=== PATIENT | male | born 2000 | race Caucasian/White ===

== ENCOUNTER 2021-09-04 12:27 | Emergency (ER) | payer OTHER, SELFPAY ==
[2021-09-04 12:39] VITALS: BP 139/69; PULSE 98; RESP 16; TEMP 37.9; O2SAT 100
--- NOTE | 2021-09-04 13:00 | ED.URI ---
HPI - URI/Sore Throat General Chief Complaint: Upper Respiratory Infection Stated Complaint: lump on right side of neck Time Seen by Provider: 09/04/21 12:45 Source: patient Mode of arrival: ambulatory Limitations: no limitations History of Present Illness HPI Narrative: Jose is a 20-year-old male patient presenting to the clinic today with complaints of a lump to the right side of his neck, fever, and a sore throat x3 days. He is reports that he has had some nasal congestion and a slight cough. He denies any known exposure to anyone with COVID, strep, or influenza. MD elicited complaint: fever, cough, sore throat and nasal congestion Related Data Allergies Allergy/AdvReac Type Severity Reaction Status Date / Time No Known Allergies Allergy Unverified 09/04/21 12:41 Review of Systems Review of Systems: Pertinent positives per HPI. Patient denies any fever, chills, rash, headache, visual changes, dizziness, shortness of breath, chest pain, palpitations, nausea, vomiting, diarrhea, constipation, abdominal pain, or any urinary issues. PMFSH Comments At the time of my signature, I reviewed and agree with the nursing past medical, surgical, social, and family history. There is no relevant family history pertinent to the patient complaint. Exam Narrative: General: Well-developed, well nourished, in no apparent distress Head: Normocephalic, atraumatic Eyes: Pupils equally round and reactive to light bilaterally, EOM intact, sclera and conjunctive clear, no discharge, lids normal Ears: TMs intact and clear, ear canals clear, no drainage, grossly hearing normal. Nose: Nares patent, no discharge, no inflammation, no sinus tenderness. Mouth: Oral pharynx without lesions or masses, good dentition, MMM. Oropharynx red with tonsillar enlargement and exudate to the right tonsil Neck: Supple, trachea midline, positive enlargement of right anterior posterior cervical nodes, no thyroid masses or goiter palpable. Cardio: Regular rate and rhythm, s1 and s2 normal, no murmur appreciated. Resp: Clear to auscultation bilaterally, no rhonchi, rales, wheezing or rubs Course Course Emergency Course: Portions of this record may have been created with voice recognition software. Level of Care: Express Care Visit Vital Signs Vital signs: Vital Signs Temperature 37.9 C H 09/04/21 12:39 Pulse Rate 98 09/04/21 12:39 Respiratory Rate 16 09/04/21 12:39 Blood Pressure 139/69 09/04/21 12:39 Pulse Oximetry 100 09/04/21 12:39 Oxygen Delivery Room Air 09/04/21 12:39 Temperature 37.9 C H 09/04/21 12:39 Pulse Rate 98 09/04/21 12:39 Respiratory Rate 16 09/04/21 12:39 Blood Pressure 139/69 09/04/21 12:39 Pulse Oximetry 100 09/04/21 12:39 Oxygen Delivery Room Air 09/04/21 12:39 Vital signs reviewed MDM - URI/Sore Throat MDM Narrative Medical decision making narrative: At the time of visit patient is resting comfortably on the exam table. A strep screen was obtained and was negative. A monoscreen was then completed. Monospot was negative. Patient has 3 out of 4 Centor criteria so I will go ahead and empirically treat him for strep pharyngitis as the mono was negative. Amoxicillin was sent to the pharmacy and supportive measures were discussed with the patient he voiced understanding of discharge instructions and agrees to treatment plan Differential Diagnosis Differential diagnosis: Likely upper respiratory infection, sinusitis, viral infection, bronchitis, influenza and pharyngitis Lab Data Labs: Strep Screen Presumptive Negative *(Reference Range: Negative)* Discharge Plan Discharge Clinical Impression: Pharyngitis, Anterior cervical lymphadenopathy Patient Disposition: Home, Self-Care Condition: Stable Instructions: Antibiotic Form, Pharyngitis (ED), Adenitis (ED) Additional Instructions: Take prescription medications
== END 2021-09-04 13:15 | disposition home or self-care (01) ==
PROVIDERS: Emergency Provider Nurse Practitioner Family; PCP Internal Medicine
DX: J02.9 Acute pharyngitis, unspecified (principal); R59.0 Localized enlarged lymph nodes
CPT/HCPCS: 36416; 86308; 87081; 87880; 99203; G0463

== ENCOUNTER 2021-09-20 21:12 | Emergency (ER) | payer OTHER, SELFPAY ==
--- NOTE | ~2021-09-20 | XR_ITS ---
EXAMINATION: XR chest 2V DATE: 09/20/2021 21:59 INDICATION: Left-sided chest pain TECHNIQUE: PA and lateral views of the chest are obtained. COMPARISON: None available FINDINGS: The lungs are free of acute opacities. There is no pleural effusion or pneumothorax. The ca rdiomediastinal silhouette is normal. The visualized bones and soft tissues are unremarkable. IMPRESSION: 1. No acute cardiopulmonary abnormality. Reviewed, dictated and finalized at location A.
[2021-09-20 21:14] VITALS: BP 162/84; PULSE 92; RESP 17; TEMP 36.8; O2SAT 100
--- NOTE | 2021-09-20 21:19 | ECG_ITS ---
Measurements Intervals [place] Rate: 107 P: 71 [place]: 125 QRS: 63 QRSD: 93 T: 43 QT: 320 QTc: 428 Interpretive Statements SINUS TACHYCARDIA OTHERWISE NORMAL ECG NO PREVIOUS ECG AVAILABLE FOR COMPARISON Electronically Signed On 09-21-2021 7:12:34 CDT by Zoran Shetty M.D.
--- NOTE | 2021-09-20 21:30 | ED.CHESTPAIN ---
HPI - Chest Pain General Chief Complaint: Chest Pain Stated Complaint: L sided CP Time Seen by Provider: 09/20/21 21:22 History of Present Illness HPI narrative: 21-year-old male with no medical history presents to the emergency room via EMS with complaints of left anterior chest pain. Patient states that he has been laying on his left side for several hours watching videos on his phone. Patient states when he sat up he felt the pain. Denies any shortness of breath. Denies any nausea or vomiting. Denies any lightheadedness or dizziness. Denies any radiating. On initial evaluation patient stated the pain is mostly subsided. Patient denies any cough or recent upper respiratory infection. Patient denies any alleviating or aggravating factors of his chest pain. Related Data Home Medications Medication Instructions Recorded Confirmed No Home Medications 09/20/21 09/20/21 Allergies Allergy/AdvReac Type Severity Reaction Status Date / Time No Known Allergies Allergy Verified 09/20/21 21:17 Review of Systems Review of Systems: CONSTITUTIONAL: Denies fever, chills, or sweats. EYES: Denies visual changes, redness, or discharge. ENT: Denies rhinorrhea, congestion, sore throat, or otalgia. CARDIOVASCULAR: Reports anterior chest wall pain RESPIRATORY: Denies cough or dyspnea. GASTROINTESTINAL: Denies abdominal pain, nausea, vomiting, or diarrhea. GENITOURINARY: Denies dysuria or hematuria. SKIN: Denies rash or itching. MUSCULOSKELETAL: Denies back pain, joint pain, or myalgia. NEUROLOGIC: Denies headache, numbness, dizziness, or weakness. PSYCHIATRIC: Denies anxiety or depression. Exam Narrative: GENERAL: Well-appearing, well-nourished, and in no acute distress. HEAD: Normocephalic, atraumatic. EYES: PERRLA and EOMI. CHEST: Clear to auscultation. No respiratory distress. No wheezes rales or rhonchi HEART: Tachycardic and normal rhythm. No murmur heard. Normal peripheral pulses. ABDOMEN: Soft, nontender, nondistended, normal active bowel sounds. EXTREMITIES: Normal range of motion. No edema. SKIN: Warm, dry, no rash. NEURO: No focal deficits. Alert and oriented x3. PSYCH: Normal mood and affect. Course Vital Signs Vital signs: Vital Signs Temperature 36.8 C 09/20/21 21:14 Pulse Rate 92 09/20/21 21:14 Respiratory Rate 17 09/20/21 21:14 Blood Pressure 162/84 H 09/20/21 21:14 Pulse Oximetry 100 09/20/21 21:14 Temperature 36.8 C 09/20/21 21:14 Pulse Rate 90 09/20/21 21:59 Respiratory Rate 12 09/20/21 21:59 Blood Pressure 137/92 H 09/20/21 21:59 Pulse Oximetry 99 09/20/21 21:59 Oxygen Delivery Room Air 09/20/21 21:32 MDM - Chest Pain MDM Narrative Medical decision making narrative: 21-year-old male presented emergency room complaints of chest pain. No evidence of volume overload. EKG shows no signs of active ischemia. Single troponin was negative so doubtful that there is an NSTEMI. Chest x-ray showed no acute cardiopulmonary process. Heart score of 0. Patient was pain-free after receiving 60 mg of IM Toradol. Lab Data Labs: Lab Results 09/20/21 Range/Units 21:32 Troponin I < 0.012 (0.000-0.034) ng/mL ECG Data EKG #1: Attestation: I personally reviewed and interpreted this ECG as follows: ECG completion date: 09/20/21 ECG completion time: 21:34 Prior ECG tracings: not available for review EKG Interpretation: tachycardia, sinus rhythm, no ectopy, no ST changes, normal QRS, normal QT and no acute changes Discharge Plan Discharge Clinical Impression: Atypical chest pain Patient Disposition: Home, Self-Care Condition: Stable Instructions: Antibiotic Form, Chest Wall Pain (ED) Additional Instructions: May take Tylenol and ibuprofen as needed for pain. Follow-up with your primary care physician as indicated. Prescriptions: No Action No Home Medications Follow-up/Referrals: Eric,Jim
[2021-09-20 21:32] VITALS: O2SAT 99
[2021-09-20] MEDS: KETOROLAC (*BKC) 60 MG/2 ML VIAL IM (21:58)
[2021-09-20 21:59] VITALS: BP 137/92; PULSE 90; RESP 12; O2SAT 99
[2021-09-20 22:02] LABS: Troponin I < 0.012 ng/mL (0.000-0.034)
[2021-09-20 23:11] VITALS: BP 115/75; PULSE 82; RESP 19; O2SAT 99
== END 2021-09-20 23:14 | disposition home or self-care (01) ==
PROVIDERS: Emergency Medicine; Emergency Provider Nurse Practitioner Family
DX: R07.89 Other chest pain (principal); R00.0 Tachycardia, unspecified
CPT/HCPCS: 36415; 71046; 84484; 93005; 96372; 99284; J1885

== ENCOUNTER 2021-10-05 16:37 | Emergency (ER) | payer OTHER, SELFPAY ==
[2021-10-05 16:48] VITALS: BP 123/66; PULSE 109; RESP 18; TEMP 38.2; O2SAT 100
--- NOTE | 2021-10-05 18:32 | ED.URI ---
HPI - URI/Sore Throat General Chief Complaint: Upper Respiratory Infection Stated Complaint: Headache,Sore Throat Time Seen by Provider: 10/05/21 18:24 Source: patient Mode of arrival: ambulatory Limitations: no limitations History of Present Illness HPI Narrative: Patient presents today complaining of headache and sore throat since yesterday with fever up to 101. Denies any additional symptoms to include cough, congestion, rhinorrhea, shortness of breath. Has been taking ibuprofen without relief. Currently rates his pain 10/05. Related Data Home Medications Medication Instructions Recorded Confirmed No Home Medications 09/20/21 10/05/21 Allergies Allergy/AdvReac Type Severity Reaction Status Date / Time No Known Allergies Allergy Verified 10/05/21 16:49 Review of Systems Review of Systems: CONSTITUTIONAL: Denies body aches, fever, chills, or sweats. EYES: Denies visual changes, redness, or discharge. ENT: Denies rhinorrhea, congestion, or otalgia.+ Sore throat CARDIOVASCULAR: Denies chest pain, palpitations, or edema. RESPIRATORY: Denies cough or dyspnea. GASTROINTESTINAL: Denies abdominal pain, nausea, vomiting, or diarrhea. GENITOURINARY: Denies dysuria or hematuria. SKIN: Denies rash, itching, or wounds. MUSCULOSKELETAL: Denies back pain, joint pain, or myalgia. NEUROLOGIC: Denies numbness, tingling, or weakness.+ Headache PSYCH: Denies depression or anxiety. PMFSH Comments At time of signature, I have reviewed and agree with nursing past medical, surgical, social and family history unless otherwise noted. Please see nursing chart for further information. There is no relevant family history pertinent to the presenting complaint Exam Narrative: GENERAL: Mildly ill-appearing, well-nourished, and in no acute distress. HEAD: Normocephalic, atraumatic. EYES: EOMI. No redness or drainage. Conjunctivae normal. ENT: Mucous membranes pink and moist. Nares clear. No rhinorrhea. TMs normal bilaterally. Tonsils 2+ moderate white exudate. Uvula midline. NECK: Normal AROM. Supple. Bilateral anterior cervical chain lymphadenopathy. CHEST: No respiratory distress. Clear to auscultation. HEART: Regular rate and rhythm. No murmur appreciated. Normal peripheral pulses. EXTREMITIES: Normal range of motion. No edema. SKIN: Warm, dry, no rash. Capillary refill normal. Normal skin turgor. NEURO: No focal deficits. Alert and oriented x3. Gait steady. PSYCH: Normal affect. No signs of depression or anxiety. Course Course Level of Care: Express Care Visit Vital Signs Vital signs: Vital Signs Temperature 100.7 F H 10/05/21 16:48 Pulse Rate 109 H 10/05/21 16:48 Respiratory Rate 18 10/05/21 16:48 Blood Pressure 123/66 10/05/21 16:48 Pulse Oximetry 100 10/05/21 16:48 Oxygen Delivery Room Air 10/05/21 16:48 Temperature 100.7 F H 10/05/21 16:48 Pulse Rate 109 H 10/05/21 16:48 Respiratory Rate 18 10/05/21 16:48 Blood Pressure 123/66 10/05/21 16:48 Pulse Oximetry 100 10/05/21 16:48 Oxygen Delivery Room Air 10/05/21 16:48 Reviewed. Pt has been instructed to follow up with his PCP regarding his elevated blood pressure today. MDM - URI/Sore Throat Differential Diagnosis Differential diagnosis: Likely upper respiratory infection, viral infection, bronchitis, pharyngitis and other (Strep throat, COVID-19, influenza) Lab Data Attestation: I reviewed the patient's lab results. Labs: Influenza A Screen Negative Reference Range: Negative Influenza B Screen Negative Reference Range: Negative Strep Screen Presumptive Negative *(Reference Range: Negative)* Critical Care Time Critical Care Time Critical Care Time: No Discharge Plan Discharge Clinical Impression: Upper respiratory infection Quali
== END 2021-10-05 18:45 | disposition home or self-care (01) ==
PROVIDERS: Emergency Provider Nurse Practitioner
DX: J06.9 Acute upper respiratory infection, unspecified (principal); Z20.822 Contact with and (suspected) exposure to COVID-19
CPT/HCPCS: 87081; 87426; 87804; 87880; 99213; C9803; G0463

== ENCOUNTER 2023-05-21 09:32 | Emergency (ER) | payer OTHER, SELFPAY ==
--- NOTE | 2023-05-21 09:37 | ED.GENADULT ---
HPI - General Adult General Chief complaint: Unspecified Stated complaint: shaking/stuttering/hard time talking Time Seen by Provider: 05/21/23 09:37 Source: patient and family Mode of arrival: ambulatory Limitations: no limitations History of Present Illness HPI narrative: 22 yo M with hx of anxiety presents with c/o shaking to hands, anxious and stuttering over the past several days. Has been seen at ER in the past for anxiety and given hydroxyzine. pt has not taken medication recently for anxiety because he states it makes him tired. 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 Pt is alert, oriented to person, place and time. Can answer all questions appropriately. ambulatory with steady gait. all systems reviewed and negative except as noted above. Related Data Home Medications Medication Instructions Recorded Confirmed No Home Medications 09/20/21 10/05/21 Allergies Allergy/AdvReac Type Severity Reaction Status Date / Time No Known Allergies Allergy Verified 10/05/21 16:49 Review of Systems Review of Systems: CONSTITUTIONAL: Denies fever, chills, or sweats. EYES: Denies visual changes, redness, or discharge. ENT: Denies rhinorrhea, congestion, sore throat, or otalgia. CARDIOVASCULAR: Denies chest pain, palpitations, or edema. RESPIRATORY: Denies cough or dyspnea. GASTROINTESTINAL: Denies abdominal pain, nausea, vomiting, or diarrhea. GENITOURINARY: Denies dysuria or hematuria. SKIN: Denies rash or itching. MUSCULOSKELETAL: Denies back pain, joint pain, or myalgia. NEUROLOGIC: Denies headache, numbness, or weakness. Patient reports shaking to the hands and stuttering. PSYCHIATRIC: Reports anxiety. Denies depression. All other systems reviewed are negative, except as documented in HPI. PMFSH Comments At time of signature, agree with nursing past medical, surgical, social and family history. There is no relevant family history pertinent to the presenting complaint. Exam Narrative: GENERAL: This is a well-nourished, well-developed patient, in no apparent distress. HEAD: normocephalic, atraumatic. EYES: PERRL. Sclera clear/white. Vision is grossly intact. EARS: External ears normal, auditory canals clear and without drainage, TMs normal without perforation. Hearing grossly intact. NOSE: External nose normal with no obvious nasal discharge, nares without redness, no rhinorrhea. THROAT: Mucous membranes moist, posterior pharynx clear. NECK: Neck supple, non-tender without lymphadenopathy, masses or thyromegaly. CARDIOVASCULAR: Regular rate and rhythm without murmurs, gallops, or rubs. RESPIRATORY: Clear to auscultation. Breath sounds equal bilaterally. No wheezes, rales, or rhonchi. SKIN: warm, Dry, intact with no suspicious lesions or rash, good texture and turgor. NEURO: awake, alert, and oriented to person, place and time. no slurred speech noted. No facial droop. Extremity strength to upper and lower extremities bilaterally is 5/5. Normal hand project designer. There were no obvious focal neurologic abnormalities. EXTREMITIES: No joint tenderness, effusion, or edema noted. Course Course Level of Care: Express Care Visit Vital Signs Vital signs: Vital Signs Temperature 36.8 C 05/21/23 09:45 Pulse Rate 91 05/21/23 09:45 Respiratory Rate 16 05/21/23 09:45 Blood Pressure 133/79 05/21/23 09:45 Pulse Oximetry 99 05/21/23 09:45 Oxygen Delivery Room Air 05/21/23 09:45 Temperature 36.8 C 05/21/23 09:45 Pulse Rate 91 05/21/23 09:45 Respiratory Rate 16 05/21/23 09:45 Blood Pressure 133/79 05/21/23 09:45 Pulse Oximetry 99 05/21/23 09:45 Oxygen Delivery Room Air 05/21/23 09:45 Reviewed Medical Decision Making MDM Narrative Medical decision making narrative: spoke extensively with pt regarding his symptoms. he feels that at times he cannot form a sentence and stutters. when this happens it is usually when he is having anxiety. he was given h
[2023-05-21 09:45] VITALS: BP 133/79; PULSE 91; RESP 16; TEMP 36.8; O2SAT 99
== END 2023-05-21 10:12 | disposition home or self-care (01) ==
PROVIDERS: Emergency Provider Nurse Practitioner Family
DX: F41.9 Anxiety disorder, unspecified (principal)
CPT/HCPCS: 99211; G0463